=== PATIENT | male | born 1990 | race Caucasian/White ===

== ENCOUNTER 2018-09-20 09:13 | Emergency (ER) | payer OTHER ==
[~2018-09-20] VITALS: Ht 193 cm; Wt 90.9 kg
[~2018-09-20 09:13] MED LIST: DIVA-78 PO; HALO5TAB2 PO
[2018-09-20] MEDS ORDERED: CEPHALEXIN MONOHYDRATE 500 MG CAPSULE PO ONE (10:30)
[2018-09-20] MEDS ORDERED: SULFAMETHOX/TRIMETH DS 800-160 MG/TABLET PO ONE (10:30)
[2018-09-20 10:34] VITALS: BP 151/94
== END 2018-09-20 11:04 | disposition home or self-care (01) ==
LOC: EMS 09:20
DX: N49.2 Inflammatory disorders of scrotum (principal); F20.9 Schizophrenia, unspecified; F31.9 Bipolar disorder, unspecified

== ENCOUNTER 2019-07-19 19:51 | Inpatient (IN) | payer MEDICAID, OTHER ==
[~2019-07-19] VITALS: Ht 185.4 cm; Wt 72.6 kg
[2019-07-19] MEDS ORDERED: HALOPERIDOL LACTATE 5 MG/ML VIAL IM ONE (21:45)
[2019-07-19] MEDS ORDERED: DiphenhydrAMINE HCL 50 MG/ML VIAL IM ONE (21:45)
[2019-07-19] MEDS ORDERED: LORazepam 2 MG/ML VIAL IM ONE (21:45)
[2019-07-20] MEDS ORDERED: ZOLPIDEM TARTRATE 10 MG TABLET PO PRN (00:15)
[2019-07-20 03:53] VITALS: BP 126/83
[2019-07-20 08:11] VITALS: BP 114/62
[2019-07-20] MEDS ORDERED: MAG HYDROX/AL HYDROX/SIMETH ES 30 ML SUSPENSION UDCUP PO PRN (09:30)
[2019-07-20] MEDS ORDERED: ACETAMINOPHEN 325 MG TABLET PO PRN (09:30)
[2019-07-20] MEDS ORDERED: CloNIDine HCL 0.1 MG TABLET PO PRN (09:30)
[2019-07-20] MEDS ORDERED: IBUPROFEN 400 MG TABLET PO PRN (09:30)
[2019-07-20] MEDS ORDERED: ONDANSETRON HCL 4 MG TABLET PO PRN (09:30)
[2019-07-20] MEDS ORDERED: DOCUSATE SODIUM 100 MG CAPSULE PO PRN (09:30)
[2019-07-20] MEDS ORDERED: GuaiFENesin/D-METHORPHAN [SUGAR-FREE] 200-20MG/10 ML SYRUP UDCUP PO PRN (09:30)
[2019-07-20] MEDS ORDERED: LOPERAMIDE HCL 2 MG CAPSULE PO PRN (09:30)
[2019-07-20] MEDS ORDERED: PETROLATUM,WHITE 28 GM JELLY TP PRN (09:30)
[2019-07-20] MEDS ORDERED: ALBUTEROL SULFATE HFA 90 MCG/PUFF 8 GM INHALER IH PRN (09:30)
[2019-07-20] MEDS ORDERED: MAGNESIUM HYDROXIDE SUSPENSION 30 ML UDCUP PO PRN (09:30)
[2019-07-20] MEDS: NICOTINE 14 MG/24 HOUR PATCH TD PRN (10:23)
[2019-07-20] MEDS: OLANZapine 5 MG TABLET PO SCH ×2 (11:15→20:50)
[2019-07-20 19:47] VITALS: BP 101/58
[2019-07-21 05:54] VITALS: BP 106/73
[2019-07-21 08:19] VITALS: BP 119/79
[2019-07-21 08:24] LABS: BASOPHILS % (AUTO) 0.2 % (0.0-2.0); EOSINOPHILS % (AUTO) 1.6 % (1.0-6.0); HEMATOCRIT 43.1 % (41-53); HEMOGLOBIN 14.7 g/dL (13.5-17.5); LYMPHOCYTES # (AUTO) 1.2 K/uL (1.0-4.8); MEAN CORPUSCULAR HGB CONC 34.2 G/dL (31.0-37.0); MEAN CORPUSCULAR VOLUME 97 fL (80-100); MONOCYTES # (AUTO) 0.3 K/uL (0.1-1.0); MONOCYTES % (AUTO) 5.1 % (2.0-9.0); NEUTROPHILS # (AUTO) 4.5 K/uL (1.8-7.7); NEUTROPHILS % (AUTO) 73.1 % (40.0-70.0); PLATELET COUNT (AUTO) 229 K/uL (150-450); RED BLOOD CELL COUNT(AUTO) 4.46 MIL/uL (4.50-5.90); RED CELL DISTRIBUTION WIDTH 13.3 % (11.5-14.5)
[2019-07-21 08:39] LABS: HEMOGLOBIN A1C 5.4 % (3.8-5.6)
[2019-07-21] MEDS: NICOTINE 14 MG/24 HOUR PATCH TD PRN (08:43)
[2019-07-21] MEDS: OLANZapine 5 MG TABLET PO SCH ×2 (08:43→20:34)
[2019-07-21 09:08] LABS: ALANINE AMINOTRANSFERASE 60 U/L (12-78); ALBUMIN 3.5 g/dL (3.4-5.0); ALKALINE PHOSPHATASE 71 U/L (46-116); ANION GAP 8 mmol/L (8-16); ASPARTATE AMINOTRANSFERASE 79 U/L (15-37); BILIRUBIN,TOTAL 0.6 mg/dL (0.1-1.0); CALCIUM, TOTAL 8.5 mg/dL (8.8-10.5); CARBON DIOXIDE 25 mmol/L (22-29); CHLORIDE 105 mmol/L (98-107); CHOL/HDL RATIO 3.2 (4.2-7.3); CHOLESTEROL 136 mg/dL (131-200); CREATININE 0.85 mg/dL (0.60-1.30); GLOMERULAR FILTR. RATE CALC > 60 mL/min (>60); GLUCOSE,RANDOM 110 mg/dL (70-110); HDL CHOLESTEROL 43 mg/dL (40-60); LDL CHOL (CALC.) 74 mg/dL (0-130); POTASSIUM 4.2 mmol/L (3.5-5.1); SODIUM SERUM 138 mmol/L (136-145); THYROID STIMULATING HORMONE 0.82 uIU/mL (0.36-3.74); TOTAL PROTEIN, SERUM 6.8 g/dL (6.4-8.2); TRIGLYCERIDES 95 mg/dL (15-150); UREA NITROGEN, BLOOD 14 mg/dL (7-18)
[2019-07-21] MEDS: LORazepam 2 MG TABLET PO PRN (14:19)
[2019-07-21] MEDS: HALOPERIDOL 5 MG TABLET PO PRN (16:12)
[2019-07-21 16:22] VITALS: BP 138/73
[2019-07-22 00:20] VITALS: BP 125/83
[2019-07-22 08:10] VITALS: BP 113/95
[2019-07-22] MEDS: OLANZapine 5 MG TABLET PO SCH ×2 (08:40→20:33)
[2019-07-22] MEDS: LORazepam 2 MG TABLET PO PRN ×2 (08:49→16:05)
[2019-07-22] MEDS: NICOTINE 14 MG/24 HOUR PATCH TD PRN (09:06)
[2019-07-22] MEDS: NICOTINE POLACRILEX 2 MG LOZENGE PO PRN (16:05)
[2019-07-23] MEDS: NICOTINE POLACRILEX 2 MG LOZENGE PO PRN ×5 (01:34→17:23)
[2019-07-23 01:40] VITALS: BP 111/66
[2019-07-23] MEDS: LORazepam 2 MG TABLET PO PRN ×2 (08:37→16:15)
[2019-07-23] MEDS: OLANZapine 5 MG TABLET PO SCH ×2 (08:37→20:26)
[2019-07-23 08:38] VITALS: BP 102/71
[2019-07-23 16:10] VITALS: BP 130/75
[2019-07-23] MEDS: HALOPERIDOL 5 MG TABLET PO PRN (16:15)
[2019-07-24 03:28] VITALS: BP 126/70
[2019-07-24] MEDS: NICOTINE POLACRILEX 2 MG LOZENGE PO PRN ×3 (03:30→14:13)
[2019-07-24] MEDS: LORazepam 2 MG TABLET PO PRN ×3 (04:29→14:26)
[2019-07-24] MEDS: OLANZapine 5 MG TABLET PO SCH ×2 (08:42→21:24)
[2019-07-24] MEDS: HALOPERIDOL 5 MG TABLET PO PRN ×2 (08:42→14:26)
[2019-07-24 11:38] VITALS: BP 126/86
[2019-07-25 03:30] VITALS: BP 122/82
[2019-07-25] MEDS: NICOTINE POLACRILEX 2 MG LOZENGE PO PRN ×4 (04:38→14:17)
[2019-07-25] MEDS: LORazepam 2 MG TABLET PO PRN ×3 (05:16→15:15)
[2019-07-25 08:10] VITALS: BP 124/62
[2019-07-25] MEDS: OLANZapine 5 MG TABLET PO SCH (08:54)
[2019-07-25 13:20] VITALS: BP 138/93
[2019-07-25] MEDS: HALOPERIDOL 5 MG TABLET PO PRN (15:15)
[2019-07-25] MEDS ORDERED: OLAN5TAB2 PO (16:11)
[2019-07-25 16:41] VITALS: BP 136/86
== END 2019-07-25 17:10 | disposition home or self-care (01) | DRG 885 ==
LOC: EMS 19:53 → B3A 07-20 00:17
PROVIDERS: ADMIT Psychiatry & Neurology Child & Adolescent Psychiatry; ATTEND Psychiatry & Neurology Child & Adolescent Psychiatry
DX: F25.0 Schizoaffective disorder, bipolar type (principal); R45.851 Suicidal ideations; F10.10 Alcohol abuse, uncomplicated; F11.90 Opioid use, unspecified, uncomplicated; F15.90 Other stimulant use, unspecified, uncomplicated; Z53.20 Procedure and treatment not carried out because of patient's decision for unspecified reasons
CPT/HCPCS: 83036; 84443; 99291

== ENCOUNTER 2019-07-20 15:28 | Emergency (ER) | payer SELFPAY ==
[~2019-07-20] VITALS: Ht 195.6 cm; Wt 72.7 kg
[2019-07-20 16:32] VITALS: BP 131/50
[2019-07-20] MEDS: LORazepam 2 MG/ML VIAL IM ONE (17:16)
[2019-07-20] MEDS: DiphenhydrAMINE HCL 50 MG/ML VIAL IM ONE (17:16)
[2019-07-20] MEDS: HALOPERIDOL LACTATE 5 MG/ML VIAL IM ONE (17:16)
== END 2019-07-20 19:30 | disposition home or self-care (01) ==
LOC: EMS 15:30
DX: F25.9 Schizoaffective disorder, unspecified (principal); F31.9 Bipolar disorder, unspecified; Z20.828 Contact with and (suspected) exposure to other viral communicable diseases
CPT/HCPCS: 87635; 96372; 99284; J1200; J1630; J2060